=== PATIENT | female | born 1995 | race Caucasian/White ===

== ENCOUNTER 2018-05-17 01:18 | Emergency (ER) | payer OTHER ==
[2018-05-17] MEDS ORDERED: ACETAMINOPHEN 500 MG TAB ONE (01:40)
[2018-05-17] MEDS ORDERED: ACETAMINOPHEN 500 MG TAB PO ONE (01:44)
--- NOTE | 2018-05-17 02:16 | EDPHY ---
H & P Stated Complaint: sitting on a bent and fell back hitting head No LOC head lac Time Seen by Provider: 05/17/18 02:16 HPI/ROS: HPI CHIEF COMPLAINT: Fall, head laceration, head hematoma. HISTORY OF PRESENT ILLNESS: 23-year-old female she is otherwise healthy, denies significant medical history went out this evening, she had multiple alcoholic beverages, she was standing on a bench and fell backwards off the bed striking her head. She has a right posterior occiput hematoma with a laceration. Denies LOC pending arrives to the emergency room with friends, she is intoxicated. Denies neck pain. However where she fell as at the base of her neck and posterior occiput. She is mentating appropriately, GCS 15, alert and orient x4. Patient reports tetanus shot up-to-date. Past Medical History: Denies significant medical history Past Surgical History: Denies significant surgical history Social History: Denies drugs or tobacco. Alcohol this evening. Family History: Noncontributory ROS REVIEW OF SYSTEMS: 10 Systems were reviewed and negative with the exception of the elements mentioned in the history of present illness. Exam Constitutional intoxicated, smells of alcohol, triage nursing summary reviewed , vital signs reviewed, awake/alert. Eyes normal conjunctivae and sclera, EOMI, PERRLA. HENT head and neck: Left posterior occiput, hematoma present, and laceration present, 3 cm horizontally oriented laceration, no significant midline cervical spine pain or step-offs or crepitus, moist mucus membranes, no epistaxis, neck supple/ no meningismus, no raccoon eyes. Respiratory clear to auscultation bilaterally, normal breath sounds, no respiratory distress, no wheezing. Cardiovascular rate normal, regular rhythm, no murmur, no edema, distal pulses normal. Gastrointestinal soft, non-tender, no rebound, no guarding, normal bowel sounds, no distension, no pulsatile mass. Genitourinary no CVA tenderness. Musculoskeletal no midline vertebral tenderness, full range of motion, no calf swelling, no tenderness of extremities, no meningismus, good pulses, neurovascularly intact. Skin pink, warm, & dry, no rash, skin atraumatic. Neurologic awake, alert and oriented x 3, AAOx3, moves all 4 extremities equally, motor intact, sensory intact, CN II-XII intact, normal cerebellar, normal vision, normal speech. Psychiatric normal mood/affect. Heme/Lymph/Immune no lymphadenopathy. Differential Diagnosis: Includes but is not limited to in a particular order acute closed head injury, intracranial bleed, skull fracture, scalp hematoma scalp laceration, cervical spine injury, alcohol intoxication Medical Decision Making: Plan for this patient CT scan head without contrast, CT cervical spine without contrast, will clean her wound, copiously irrigated, and then will need repair. Re-evaluation: Patient consents to CT imaging. Reason for CT scan head without contrast and CT cervical spine without contrast trauma, scalp laceration, hematoma and alcohol intoxication. CT scan head without contrast and CT cervical spine without contrast for trauma faxed me by direct Radiology at 4:02 a.m. Shows no acute traumatic intracranial abnormality there is a posterior soft tissue contusion and laceration present. CT scan of the cervical spine shows no acute evidence of fracture Laceration Repair Procedure: Verbal Consent was obtained, Under sterile conditions, 3 cm horizontal posterior right-sided occiput. The wound was copiously irrigated with sterile fluid, the wound was explored for foreign bodies there were none visualized, the wound was explored with a sterile glove to the base. There are no deep structures involved, including no arterial injury. THREE RAFAELA were placed in this patient's laceration. He had good close approximation of the wound edges. He Tolerated this well. [id number]: Patient ambulated well throughout the emergency room she is clinically sober she is stable gait. She understands she had 3 rafaela placed in her scalp laceration these need to be removed in [address] imaging of her head and neck were performed due to trauma alcohol intoxication, scalp hematoma, scalp laceration and these were unremarkable for acute traumatic injury or bleed. Return precautions discussed with the patient she is comfortable this plan. Source: Patient - Personal History LMP (Females 10-55): 22-28 Days Ago Current Tetanus/Diphtheria Vaccine: Yes Current Tetanus Diphtheria and Acellular Pertussis (TDAP): Yes - Medical/Surgical History Hx Asthma: No Hx Chronic Respiratory Disease: No Hx Diabetes: No Hx Cardiac Disease: No Hx Renal Disease: No Hx Cirrhosis: No Hx Alcoholism: No Hx HIV/AIDS: No Hx Splenectomy or Spleen Trauma: No Other PMH: left ankle surgery - Social History Smoking Status: Never smoked Constitutional: Initial Vital Signs Temperature (C) 36.7 C 05/17/18 01:25 Heart Rate 91 05/17/18 01:25 Respiratory Rate 16 05/17/18 01:25 Blood Pressure 98/59 L 05/17/18 01:25 O2 Sat (%) 97 05/17/18 01:25 O2 Delivery Mode Room Air Allergies/Adverse Reactions: No Known Allergies Allergy (Unverified 05/17/18 01:29) Home Medications: Medication Instructions Recorded Birthcontrol 05/17/18 Medical Decision Making - Data Points Medications Given: Discontinued Medications Acetaminophen (Tylenol) 1,000 mg PO EDNOW ONE Stop: 05/17/18 01:45 Last Admin: 05/17/18 01:50 Dose: 1,000 mg Ibuprofen (Motrin) 800 mg PO EDNOW ONE Stop: 05/17/18 02:23 Last Admin: 05/17/18 02:36 Dose: 800 mg Departure - Departure Disposition: Home, Routine, Self-Care Clinical Impression: Scalp hematoma, Head injury, Hematoma, Scalp laceration Condition: Good Instructions: Laceration (ED), Concussion (ED), Head Injury (ED), Staple Care ( ED), Hematoma (ED) Additional Instructions: 1. Your rafaela need to be removed in 7 days. 2. Return to the emergency room if develops worsening pain this includes vomiting, headache, not doing well 3. Keep her wound clean, dry and protected. 4. You may get warm soapy water over this area in 24 hr no direct high-pressure flow of water to the area. Referrals: NONE *PRIMARY CARE P,. [Primary Care Provider] - As per Instructions Diana Hernández MD [Medical Doctor] - As per Instructions
[2018-05-17] MEDS ORDERED: IBUPROFEN 800 MG TAB PO ONE (02:22)
[2018-05-17 05:42] VITALS: BP 97/50
== END 2018-05-17 06:10 | disposition home or self-care (01) ==
PROC: 0HQ0XZZ Repair Scalp Skin, External Approach (ICD-10-PCS; principal; 2018-05-17)
DX: S01.01XA Laceration without foreign body of scalp, initial encounter (principal); F10.920 Alcohol use, unspecified with intoxication, uncomplicated; W01.198A Fall on same level from slipping, tripping and stumbling with subsequent striking against other object, initial encounter